=== PATIENT | male | born 1995 | race Caucasian/White ===

== ENCOUNTER 2019-11-29 13:01 | Emergency (ER) | payer SELFPAY ==
[~2019-11-29] VITALS: Ht 172.7 cm; Wt 195.7 kg
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
[2019-11-29] MEDS ORDERED: CYCLOBENZAPRINE5 MG PO (14:17)
[2019-11-29] MEDS ORDERED: KEFLEX500 MG PO (14:18)
[2019-11-29 14:20] VITALS: BP 159/80
== END 2019-11-29 14:31 | disposition home or self-care (01) ==
LOC: FSED 13:01
DX: S00.83XA Contusion of other part of head, initial encounter (principal); S60.221A Contusion of right hand, initial encounter; V43.52XA Car driver injured in collision with other type car in traffic accident, initial encounter; Y92.488 Other paved roadways as the place of occurrence of the external cause
CPT/HCPCS: 70450; 99284

== ENCOUNTER 2024-07-17 18:09 | Emergency (ER) | payer SELFPAY ==
[~2024-07-17] VITALS: Ht 172.7 cm; Wt 209.6 kg
[~2024-07-17 18:09] MED LIST: CYCLOBENZAPRINE5 MG PO; KEFLEX500 MG PO
[2024-07-17] MEDS ORDERED: LIDOCAINE 1% 10 ML MULTIDOSE VIAL IJ ONE (18:30)
[2024-07-17] MEDS: LIDOCAINE HCL 1% LOCAL INJ 20 ML VIAL INJ ONE (18:37)
[2024-07-17 18:57] VITALS: PULSE 95; RESP 18; TEMP 99.4; O2SAT 96
== END 2024-07-17 18:57 | disposition home or self-care (01) ==
LOC: FSED 18:17
DX: L02.416 Cutaneous abscess of left lower limb (principal); I10 Essential (primary) hypertension
CPT/HCPCS: 10061; 96372; 99283